=== PATIENT | male | born 1955 | race Caucasian/White ===

== ENCOUNTER → 2019-02-03 | Outpatient (CLI) | payer OTHER ==
[~2019-02-03] MED LIST: EPIN0.3P3 IM; FAMO-119 PO; LISI10TA2 PO; PRAV40TA PO; PRD20T PO
[2019-02-03 10:58] LABS: ABG OXYGEN SATURATION 93 % (94-100); ABG PCO2 47 MMHG (35-45); ABG PH 7.39 (7.37-7.43); ABG PO2 55 MMHG (79-93); ABG TCO2 30.4 MMOL/L (21.0-31.0)
[2019-02-03 10:59] LABS: ALLENS TEST YES-POS; INSPIRED O2 RA; PATIENT TEMP 96.4; VENTILATOR NO
== END ==
LOC: RT 10:27
PROVIDERS: ATTEND Nurse Practitioner Family
DX: J44.9 Chronic obstructive pulmonary disease, unspecified (principal)
CPT/HCPCS: 36600; 82805

== ENCOUNTER → 2019-03-10 | Outpatient (CLI) | payer OTHER ==
--- NOTE | 2019-03-10 13:58 | Diagnostic Imaging Report ---
PROCEDURE: CT chest without contrast. TECHNIQUE: Multiple contiguous axial images were obtained through the chest without the use of intravenous contrast. Auto Exposure Controls were utilized during the CT exam to meet ALARA standards for radiation dose reduction. INDICATION: Smoker. FINDINGS: No comparison available. Calcified nodules are seen in the right upper lobe in keeping with prior granulomatous infection. No other nodules are seen. No suspicious nodules. No edema or pneumonia. No pleural effusion or pneumothorax. No significant emphysema. Heart size is normal. No pericardial effusion. Aorta is normal in caliber. No axillary, supraclavicular or mediastinal lymphadenopathy. Calcified mediastinal lymph nodes are in keeping with prior granulomatous infection. Limited views of the upper abdomen are normal. There are no suspicious osseous lesions. IMPRESSION: 1. No suspicious pulmonary nodules. Dictated by: Dictated on workstation # [id number]
== END ==
LOC: RAD 13:30
PROVIDERS: ATTEND Nurse Practitioner Family
DX: R91.8 Other nonspecific abnormal finding of lung field (principal); Z72.0 Tobacco use
CPT/HCPCS: 71250

== ENCOUNTER 2019-05-12 20:44 | Outpatient (CLI) | payer OTHER | END 2019-05-13 06:30 | disposition home or self-care (01) | LOC: SLEEP 20:44 | PROVIDERS: ATTEND Nurse Practitioner Family | DX: J30.9 Allergic rhinitis, unspecified (principal); G47.33 Obstructive sleep apnea (adult) (pediatric); G47.36 Sleep related hypoventilation in conditions classified elsewhere; Z72.0 Tobacco use | CPT/HCPCS: 95811 ==

== ENCOUNTER 2019-10-07 08:33 | Inpatient (IN) | payer OTHER ==
[~2019-10-07] VITALS: Ht 182.9 cm; Wt 121.0 kg
[2019-10-07] VITALS (10 sets, daily range): BP systolic 139–187; BP diastolic 94–117
[2019-10-07] MEDS ORDERED: methylPREDNISolone 125 MG (Solu-MEDROL) VIAL IV STA (08:38)
--- NOTE | 2019-10-07 08:39 | NUR ---
PLACED ON BI GUMARO
[2019-10-07] MEDS ORDERED: RT-ALBUTEROL/IPRATROPIUM 3 ML (DUONEB) VIAL INH ONE (08:45)
--- NOTE | 2019-10-07 08:45 | NUR ---
BREATHING IMPROVED WTIH BI PAP COLOR IMPROVED
[2019-10-07 08:51] LABS: BASOPHILS % (AUTO) 0 % (0-10); EOSINOPHILS % (AUTO) 0 % (0-10); HEMATOCRIT 50 % (40-54); HEMOGLOBIN 16.2 G/DL (13.3-17.7); LYMPHOCYTES # (AUTO) 0.6 X 10^3 (1.0-4.0); LYMPHOCYTES % (AUTO) 6 % (12-44); MEAN CORPUSCULAR HEMOGLOBIN 30 PG (25-34); MEAN CORPUSCULAR HGB CONC 32 G/DL (32-36); MEAN CORPUSCULAR VOLUME 94 FL (80-99); MEAN PLATELET VOLUME 10.1 FL (7.4-10.4); MONOCYTES # (AUTO) 1.2 X 10^3 (0.0-1.0); MONOCYTES % (AUTO) 11 % (0-12); NEUTROPHILS # (AUTO) 8.9 X 10^3 (1.8-7.8); NEUTROPHILS % (AUTO) 83 % (42-75); PLATELET COUNT 219 10^3/uL (130-400); RED CELL DISTRIBUTION WIDTH 15.9 % (10.0-14.5); WHITE BLOOD COUNT 10.7 10^3/uL (4.3-11.0)
[2019-10-07] MEDS ORDERED: BUDE10.2 (08:53)
--- NOTE | 2019-10-07 08:56 | ED Respiratory ---
General Chief Complaint: Respiratory Problems Stated Complaint: FLU LIKE SYMPTOMS/TROUBLE BREATHING Source: patient, family Exam Limitations: clinical condition History of Present Illness Date Seen by Provider: Oct 07, 2019 Time Seen by Provider: 08:40 Initial Comments 64-year-old male presents with difficulty breathing. Patient symptoms started last night and progressively worse. Patient's reports he has a history of COPD. Patient is having significant difficulty talking and is moderate distress so history of present illness is limited. Patient reports that the symptoms started with fever chills cough body aches. That they significantly worsened last night. Allergies and Home Medications Allergies Coded Allergies: aspirin (Unverified Allergy, Severe, 06/29/14) ANGIOEDEMA Beef Containing Products (Verified Allergy, Unknown, ANAPHYLAXIS, 06/29/14) Hives and difficulty breathing pork derived (porcine) (Verified Allergy, Unknown, 06/29/14) RASH Uncoded Allergies: PCN (Allergy, Unknown, 06/29/14) Patient Home Medication List Home Medication List Reviewed: Yes Review of Systems Review of Systems Constitutional: chills Respiratory: cough, short of breath, wheezing Cardiovascular: No chest pain Gastrointestinal: no symptoms reported Genitourinary: no symptoms reported Skin: no symptoms reported Psychiatric/Neurological: No Symptoms Reported Past Wcjlmwu-Tyatlu-Fuwsek Hx Past Med/Social Hx: Reviewed Nursing Past Med/Soc Hx Immunizations Up To Date Date of Influenza Vaccine: May 23, 2014 Physical Exam Vital Signs - First Documented 10/07/19 10/07/19 08:33 09:02 Temp 36.7 Pulse 122 Resp 42 B/P (MAP) 185/123 (143) Pulse Ox 48 O2 Delivery Room Air O2 Flow Rate 85.00 Capillary Refill : Height: 6'0" Weight: 225lbs. oz. 102.979341sa; BMI Method:Stated General Appearance: severe distress HEENT: PERRL/EOMI, other (lips were blue tinged) Respiratory: decreased breath sounds Cardiovascular: tachycardia Gastrointestinal: non tender, soft Extremities: normal range of motion, non-tender, other (blue tinged) Neurologic/Psychiatric: junior network administrator II-XII nml as tested, alert, normal mood/affect Skin: cyanosis; No rash Focused Exam Lactate Level 10/07/19 08:40: Lactic Acid Level 3.08*H Lactic Acid Level Laboratory Tests Test 10/07/19 08:40 Lactic Acid Level 3.08 MMOL/L (0.50-2.00) *H Progress/Results/Core Measures Suspected Sepsis SIRS Temperature: Pulse: Respiratory Rate: Laboratory Tests 10/07/19 08:40: White Blood Count 10.7 Blood Pressure / Mean: 10/07/19 08:40: Lactic Acid Level 3.08*H Laboratory Tests 10/07/19 08:40: Creatinine 1.15, Platelet Count 219, Total Bilirubin 0.3 Results/Orders Lab Results Laboratory Tests Test 10/07/19 08:40 Range/Units White Blood Count 10.7 4.3-11.0 10^3/uL Red Blood Count 5.35 4.35-5.85 10^6/uL Hemoglobin 16.2 13.3-17.7 G/DL Hematocrit 50 40-54 % Mean Corpuscular Volume 94 80-99 FL Mean Corpuscular Hemoglobin 30 25-34 PG Mean Corpuscular Hemoglobin Concent 32 32-36 G/DL Red Cell Distribution Width 15.9 H 10.0-14.5 % Platelet Count 219 130-400 10^3/uL Mean Platelet Volume 10.1 7.4-10.4 FL Neutrophils (%) (Auto) 83 H 42-75 % Lymphocytes (%) (Auto) 6 L 12-44 % Monocytes (%) (Auto) 11 0-12 % Eosinophils (%) (Auto) 0 0-10 % Basophils (%) (Auto) 0 0-10 % Neutrophils # (Auto) 8.9 H 1.8-7.8 X 10^3 Lymphocytes # (Auto) 0.6 L 1.0-4.0 X 10^3 Monocytes # (Auto) 1.2 H 0.0-1.0 X 10^3 Eosinophils # (Auto) 0.0 0.0-0.3 10^3/uL Basophils # (Auto) 0.0 0.0-0.1 10^3/uL Neutrophils % (Manual) 74 % Lymphocytes % (Manual) 4 % Monocytes % (Manual) 13 % Band Neutrophils 9 % Toxic Granulation 1+ Dohle Bodies SLIGHT Blood Morphology Comment NORMAL Sodium Level 137 135-145 MMOL/L Potassium Level 4.3 3.6-5.0 MMOL/L Chloride Level 98 98-107 MMOL/L Carbon Dioxide Level 29 21-32 MMOL/L Anion Gap 10 5-14 MMOL/L Blood Urea Nitrogen 12 7-18 MG/DL Creatinine 1.15 0.60-1.30 MG/DL Estimat Glomerular Filtration Rate > 60 BUN/Creatinine Ratio 10 Glucose Level 177 H 70-105 MG/DL Lactic Acid Level 3.08 *H 0.50-2.00 MMOL/L Calcium Level 9.3 8.5-10.1 MG/DL Corrected Calcium 9.1 8.5-10.1 MG/DL Magnesium Level 1.9 1.6-2.4 MG/DL Total Bilirubin 0.3 0.1-1.0 MG/DL Aspartate Amino Transf (AST/SGOT) 53 H 5-34 U/L Alanine Aminotransferase (ALT/SGPT) 34 0-55 U/L Alkaline Phosphatase 61 40-136 U/L B-Type Natriuretic Peptide 68.1 <100.0 PG/ML Total Protein 7.7 6.4-8.2 GM/DL Albumin 4.3 3.2-4.5 GM/DL Micro Results Microbiology 10/07/19 Influenza Types A,B Antigen (SUNIL) - Final, Complete My Orders Orders - ROBBI BANG DO Cbc With Automated Diff (10/07/19 08:38) Comprehensive Metabolic Panel (10/07/19 08:38) BNP (10/07/19 08:38) Blood Culture (10/07/19 08:38) Magnesium (10/07/19 08:38) Ekg Tracing (10/07/19 08:38) O2 (10/07/19 08:38) Ed Iv/Invasive Line Start (10/07/19 08:38) Monitor-Rhythm Ecg Trace Only (10/07/19 08:38) Albuterol/Ipra Inhalation Soln (Duoneb I (10/07/19 08:45) Rt Request For Service (10/07/19 08:38) Methylprednisolone Sod Succ (Solu-Medrol (10/07/19 08:38) Lactic Acid Analyzer (10/07/19 08:38) Svn Small Volume Nebulizer (10/07/19 08:38) Arterial Blood Gas (10/07/19 08:38) Bipap (Bilevel) Set Up (10/07/19 08:38) Influenza A And B Antigens (10/07/19 08:41) Manual Differential (10/07/19 08:40) Chest 1 View, Ap/Pa Only (10/07/19 09:01) Oseltamivir 75 Mg Capsule (Tamiflu 75 (10/07/19 10:15) Fibrin Degradation Products (10/07/19 10:32) Medications Given in ED Current Medications Medications Dose Ordered Sig/Nida Route Start Time Stop Time Status Last Admin Dose Admin Albuterol/ Ipratropium 3 ml ONCE ONCE INH 10/07/19 08:45 10/07/19 08:46 DC 10/07/19 09:01 3 ML Oseltamivir Phosphate 75 mg ONCE ONCE PO 10/07/19 10:15 10/07/19 10:16 DC 10/07/19 10:34 75 MG Vital Signs/I&O 10/07/19 10/07/19 10/07/19 08:33 09:02 10:00 Temp 36.7 Pulse 122 113 96 Resp 42 38 22 B/P (MAP) 185/123 (143) 160/106 (124) Pulse Ox 48 97 96 O2 Delivery Room Air NIV Bilevel O2 Flow Rate 85.00 Capillary Refill : Progress Note : Time: 10:49 Progress Note Patient's symptoms significantly improved with BiPAP and a DuoNeb. Patient is positive for influenza A. We will admit patient for further management of his influenza and COPD. I will obtain a d-dimer at the request of Dr. Baugh so that the results can be return as patient is being admitted upstairs. Patient much improved and stable upon admission. ECG Initial ECG Impression Date: Oct 07, 2019 Initial ECG Impression Time: 08:50 Initial ECG Rate: 114 Initial ECG Rhythm: S.Tach Initial ECG Impression: Nonspecific Changes Diagnostic Imaging Diagonstic Imaging: Xray Plain Films/CT/US/NM/MRI: chest Comments Emergency department focuses on treating and ruling out life-threatening diseases. Whenever possible, a diagnosis is given. However, most patients are given an impression based on their history, physical exam, and workup during your brief time in the ER. Information about probable diagnosis and other educational material has been provided. Please take the time to read and understand this information. It is very important that you follow up with a physician as discussed during the visit today. Failure to adhere to your follow-up instructions may lead to severe disability, injury, or so please make sure to keep your appointments or obtain one as requested. Please keep in mind the emergency department is not designed to your primary care or "family doctor" and nonurgent issues are best evaluated by an outpatient physician Departure Impression Primary Impression: Influenza A Additional Impression: COPD (chronic obstructive pulmonary disease) with acute bronchitis Disposition: ADMITTED INPATIENT Condition: Stable Departure-Patient Inst. Referrals: NO,LOCAL PHYSICIAN (PCP/Family) Primary Care Physician ROBBI BANG DO Oct 07, 2019 08:56
[2019-10-07 09:09] LABS: ALANINE AMINOTRANSFERASE 34 U/L (0-55); ALBUMIN 4.3 GM/DL (3.2-4.5); ALKALINE PHOSPHATASE 61 U/L (40-136); BILIRUBIN,TOTAL 0.3 MG/DL (0.1-1.0); BUN/CREATININE RATIO 10; CALCIUM 9.3 MG/DL (8.5-10.1); CARBON DIOXIDE 29 MMOL/L (21-32); CHLORIDE 98 MMOL/L (98-107); CREATININE SERUM 1.15 MG/DL (0.60-1.30); GFR ESTIMATED > 60; GLUCOSE 177 MG/DL (70-105); MAGNESIUM 1.9 MG/DL (1.6-2.4); POTASSIUM 4.3 MMOL/L (3.6-5.0); SODIUM 137 MMOL/L (135-145); TOTAL PROTEIN 7.7 GM/DL (6.4-8.2)
[2019-10-07 09:11] LABS: BAND NEUTROPHILS 9 %; LYMPHOCYTES % (MANUAL) 4 %; MONOCYTES % (MANUAL) 13 %; NEUTROPHILS % (MANUAL) 74 %; RBC MORPH NORMAL; TOXIC GRANULATION/VACUOLAZATIO 1+
--- NOTE | 2019-10-07 09:15 | Diagnostic Imaging Report ---
CLINICAL INDICATION: Patient with shortness of air. EXAM: Portable chest x-ray upright view. COMPARISONS: Chest x-ray dated 04/20/2013. FINDINGS: Stable calcified granuloma in the lateral left lung base. There is mild increased airspace opacities in both lung bases which may represent atelectasis, but superimposed infiltrates cannot be completely excluded. There is no pleural effusion or pneumothorax. Pulmonary vasculature and cardiac silhouette is with normal limits. Bones show no significant abnormality. IMPRESSION: 1: There is increased mild airspace opacities in both lung bases which may represent atelectasis, but superimposed infiltrate cannot be completely excluded. If necessary, chest x-ray PA and lateral views with good inspiratory effort would help better evaluate. 2: Stable calcified granuloma in the periphery of the left lung base. Dictated by: Dictated on workstation # [id number]
--- NOTE | 2019-10-07 09:59 | NUR ---
[address] AT 98
[2019-10-07] MEDS ORDERED: OSELTAMIVIR 75 MG (TAMIFLU) CAPSULE PO ONE (10:15)
--- NOTE | 2019-10-07 10:28 | NUR ---
PATIENT WANTS BI PAP OFF FOR AWHILE CALLED AND TALKED TO RT SUGGEST PLACE ON OXY MASK TO SEE HOW HE DOES. TALKED WITH DR BETI YOUNGER WITH
--- NOTE | 2019-10-07 10:51 | NUR ---
TOLERATING OXY MASK AT 10L
[2019-10-07] MEDS ORDERED: RT-ALBUTEROL/IPRATROPIUM 3 ML (DUONEB) VIAL IH SCH (11:30)
[2019-10-07] MEDS ORDERED: RT-ALBUTEROL SULF 2.5 MG/3 ML PRE-MIX VIAL INH PRN (11:30)
--- NOTE | 2019-10-07 12:28 | History & Physical-Hospitalist ---
DC COWAN,MED STUDENT 10/07/19 1228: History of Present Illness HPI/Chief Complaint Patient is a 64 y/o male who presented to the ED today with shortness of breath. He reports symptoms began 2 days ago with a fever, chills, cough, and myalgias. He felt worse yesterday, and felt increasingly dyspneic last night and into this morning. Nothing seemed to make his symptoms better. His shortness of breath was worse with exertion. His O2 sat was 48% on arrival to the ED, which rapidly improved with duoneb treatment, solumedrol, and bipap. Patient reports he was diagnosed with COPD about 2 months ago and has never used home O2. He has a symbicort inhaler at home but he states he has not used it the past 2 days because he was not sure if it would help his symptoms or make them worse. Date Seen 10/07/19 Time Seen by a Provider: 12:00 Attending Physician Daquan Baugh MD PCP No,Local Physician Referring Physician Date of Admission Oct 07, 2019 at 10:35 Home Medications & Allergies Home Medications Reviewed patient Home Medication Reconciliation performed by pharmacy medication reconciliations respiratory support technician and/or nursing. Patients Allergies have been reviewed. Allergies Allergies Coded Allergies aspirin (Unverified Allergy, Severe, 06/29/14) ANGIOEDEMA Beef Containing Products (Verified Allergy, Unknown, ANAPHYLAXIS, 06/29/14) Hives and difficulty breathing pork derived (porcine) (Verified Allergy, Unknown, 06/29/14) RASH Uncoded Allergies PCN ( Allergy, Unknown, 06/29/14) Past Wptjrxc-Kfyeiy-Isnukw Hx Past Med/Social Hx: Reviewed Nursing Past Med/Soc Hx Patient Social History Marrital Status: Alcohol Use: Denies Use Recreational Drug Use: No Smoking Status: Current Everyday Smoker (1 ppd since age 17) Recent Foreign Travel: No Contact w/other who traveled: No Recent Infectious Disease Expo: No Immunizations Up To Date Date of Influenza Vaccine: Apr 26, 2019 Past Medical History Respiratory: COPD History of Blood Disorders: No Family History Cancer (prostate cancer (dad)) Review of Systems Constitutional: chills, fever EENTM: No hearing loss, No vision loss Respiratory: cough, dyspnea on exertion, short of breath Cardiovascular: No chest pain, No palpitations Gastrointestinal: No abdominal pain, No constipation, No diarrhea Genitourinary: No dysuria, No frequency Musculoskeletal: No joint pain, No joint swelling Skin: No lesions, No rash Psychiatric/Neurological: Denies Headache, Denies Numbness, Denies Paresthesia Physical Exam Physical Exam Vital Signs Vital Signs - First Documented 10/07/19 10/07/19 08:33 11:40 Temp 36.7 Pulse 122 Resp 42 B/P (MAP) 185/123 (143) Pulse Ox 48 O2 Delivery Room Air O2 Flow Rate 10.00 FiO2 40 Capillary Refill : Less Than 3 Seconds Height, Weight, BMI Height: 6'0" Weight: 225lbs. oz. 102.447145zq; 36.61 BMI Method:Stated General Appearance: No Apparent Distress, WD/WN, Other (on bipap currently) HEENT: PERRL/EOMI, Moist Mucous Membranes Neck: Non Tender, Supple Respiratory: Chest Non Tender, Accessory Muscle Use, Decreased Breath Sounds, Wheezing (bilateral expiratory wheezing, more prominent on the left) Cardiovascular: Regular Rate, Rhythm, No Murmur Gastrointestinal: Normal Bowel Sounds, Non Tender, Soft Extremity: No Calf Tenderness, Swelling (swelling of bilateral ankles) Neurologic/Psychiatric: Alert, Oriented x3, Normal Mood/Affect Skin: Normal Color, Warm/Dry Results Results/Procedures Labs Laboratory Tests 10/07/19 08:40 Patient resulted labs reviewed. Imaging CXR PA/AP only IMPRESSION: 1: There is increased mild airspace opacities in both lung bases which may represent atelectasis, but superimposed infiltrate cannot be completely excluded. If necessary, chest x-ray PA and lateral views with good inspiratory effort would help better evaluate. 2: Stable calcified granuloma in the periphery of the left lung base. Assessment/Plan Admission Diagnosis Acute hypoxic respiratory failure COPD exacerbation due to influenza A with severe sepsis Assessment and Plan Acute hypoxic respiratory failure with COPD exacerbation due to influenza A with severe sepsis - Solumedrol given in the ED. Start prednisone 40 mg QD - Check ABG - MAT protocol - O2 and bipap as needed - Procalcitonin - Elevated d-dimer, will check CT chest to r/o PE - Continue Tamiflu - IV fluids NS 160 ml/hr - Droplet precautions - Tylenol as needed Tobaccoism - Nicotine patch - Cessation counseling DVT prophylaxis - Lovenox Clinical Quality Measures DVT/VTE Risk/Contraindication: Risk Factor Score Per Nursin RFS Level Per Nursing on Admit: 4+=Very High DAQUAN BAUGH MD 10/07/19 1409: Assessment/Plan Admission Diagnosis Admission Status: Inpatient Order (span 2 midnights) Reason for Inpatient Admission: acute respiratory failure on BiPAP Assessment and Plan patient is a 64-year-old male with a past medical history of COPD who presented to the emergency department with a chief complaint of shortness of breath. He was found to have an oxygen saturation of 48 percent on room air. He was immediately placed on BiPAP and was given an hour-long breathing treatment. This improved his oxygen saturations to the 90s and his symptoms significantly. He was actually requesting discharge home from the emergency room after this. He was agreeable to admission though. At this time he states he is breathing much better. He was off of BiPAP to eat lunch but sats were in the 80s and so he was quickly placed back on BiPAP. He has no complaints for me. We will continue steroids, BiPAP, MAT protocol. I discussed with respiratory therapy and we will repeat another hour-long treatment. Did discuss CODE STATUS with him and he would like to be a full code. Will consult pulmonology. continue Tamiflu. We'll check a pro-calcitonin. Defer antibiotic at this time. Diagnosis/Problems Diagnosis/Problems (1) Acute respiratory failure Status: Acute Qualifiers: Respiratory failure complication: hypoxia Qualified Codes: J96.01 - Acute respiratory failure with hypoxia (2) Hypertension Status: Acute Qualifiers: Hypertension type: unspecified Qualified Codes: I10 - Essential (primary) hypertension (3) Adult BMI 36.0-36.9 kg/sq m Status: Chronic (4) COPD (chronic obstructive pulmonary disease) with acute bronchitis Status: Acute (5) Influenza A Status: Acute Supervisory-Addendum Brief Verification & Attestation Participated in pt care: history, MDM, physical Personally performed: exam, history, MDM, supervision of care Care discussed with: Medical Student Procedures: n/a Results interpretation: Verified all documentation Verification and Attestation of Medical Student E/M Service A medical student performed and documented this service in my presence. I reviewed and verified all information documented by the medical student and made modifications to such information, when appropriate. I personally performed the physical exam and medical decision making. Daquan Baugh, Oct 07, 2019,14:04 DC COWAN,MED STUDENT Oct 07, 2019 12:28 DAQUAN BAUGH MD Oct 07, 2019 14:09
[2019-10-07 13:36] LABS: ABG BASE EXCESS 5.4 MMOL/L (-2.5-2.5); ABG OXYGEN SATURATION 91 % (94-100); ABG PCO2 61 MMHG (35-45); ABG PO2 66 MMHG (79-93); ABG TCO2 33.1 MMOL/L (21.0-31.0)
[2019-10-07 13:40] LABS: ABG PH 7.33 (7.37-7.43); ALLENS TEST YES-POS; INSPIRED O2 40% BIPAP; PATIENT TEMP 36.4; VENTILATOR NO
[2019-10-07] MEDS ORDERED: RT-ALBUTEROL SULF 2.5 MG/3 ML PRE-MIX VIAL INH ONE (13:40)
[2019-10-07] MEDS: RT-ALBUTEROL/IPRATROPIUM 3 ML (DUONEB) VIAL IH SCH ×2 (13:43→22:15)
[2019-10-07] MEDS ORDERED: BENZONATATE 100 MG (TESSALON) CAPSULE PO PRN (19:45)
[2019-10-07] MEDS ORDERED: MILK OF MAGNESIA 400 MG/5 ML 30 ML UDC PO PRN (19:45)
[2019-10-07] MEDS ORDERED: ONDANSETRON 4 MG/2 ML (SDV) Z0FRAN IV PRN (19:45)
[2019-10-07] MEDS ORDERED: ANTACID SUSP 30 ML UDC (MYLANTA) PO PRN (19:45)
[2019-10-07] MEDS ORDERED: MELATONIN 3 MG TABLET PO PRN (19:45)
[2019-10-07] MEDS ORDERED: NITROGLYCERIN 2% OINT 1 GM UNIT DOSE PACKET TOP PRN (19:45)
[2019-10-07] MEDS: methylPREDNISolone 40 MG/ML (Solu-MEDROL) VIAL IV SCH (21:49)
[2019-10-07] MEDS: inSUlin ASPART (NovoLOG) 1 UNIT/0.01 ML (CHARGE PER UNIT) SC SCH (21:51)
[2019-10-08] VITALS (8 sets, daily range): BP systolic 132–158; BP diastolic 86–116
[2019-10-08] MEDS: RT-ALBUTEROL/IPRATROPIUM 3 ML (DUONEB) VIAL IH SCH ×4 (01:46→21:54)
[2019-10-08] MEDS: methylPREDNISolone 40 MG/ML (Solu-MEDROL) VIAL IV SCH ×4 (02:37→20:22)
[2019-10-08] MEDS: ACETAMINOPHEN 325 MG TABLET PO PRN (02:41)
[2019-10-08 04:26] LABS: BASOPHILS % (AUTO) 0 % (0-10); EOSINOPHILS % (AUTO) 0 % (0-10); HEMATOCRIT 47 % (40-54); HEMOGLOBIN 15.7 G/DL (13.3-17.7); LYMPHOCYTES # (AUTO) 0.5 X 10^3 (1.0-4.0); LYMPHOCYTES % (AUTO) 4 % (12-44); MEAN CORPUSCULAR HEMOGLOBIN 31 PG (25-34); MEAN CORPUSCULAR HGB CONC 34 G/DL (32-36); MEAN CORPUSCULAR VOLUME 93 FL (80-99); MONOCYTES # (AUTO) 0.5 X 10^3 (0.0-1.0); MONOCYTES % (AUTO) 4 % (0-12); NEUTROPHILS # (AUTO) 10.6 X 10^3 (1.8-7.8); NEUTROPHILS % (AUTO) 91 % (42-75); PLATELET COUNT 216 10^3/uL (130-400); RED CELL DISTRIBUTION WIDTH 16.5 % (10.0-14.5); WHITE BLOOD COUNT 11.6 10^3/uL (4.3-11.0)
[2019-10-08 04:54] LABS: ALANINE AMINOTRANSFERASE 37 U/L (0-55); ALBUMIN 3.8 GM/DL (3.2-4.5); ALKALINE PHOSPHATASE 51 U/L (40-136); BILIRUBIN,TOTAL 0.2 MG/DL (0.1-1.0); BUN/CREATININE RATIO 25; CALCIUM 9.1 MG/DL (8.5-10.1); CARBON DIOXIDE 26 MMOL/L (21-32); CHLORIDE 100 MMOL/L (98-107); CREATININE SERUM 0.91 MG/DL (0.60-1.30); GFR ESTIMATED > 60; GLUCOSE 173 MG/DL (70-105); POTASSIUM 4.7 MMOL/L (3.6-5.0); SODIUM 137 MMOL/L (135-145)
[2019-10-08 05:02] LABS: ABG BASE EXCESS 5.2 MMOL/L (-2.5-2.5); ABG OXYGEN SATURATION 91 % (94-100); ABG PCO2 27 MMHG (35-45); ABG PO2 137 MMHG (79-93); ABG TCO2 28.2 MMOL/L (21.0-31.0)
[2019-10-08 05:09] LABS: ABG PH 7.61 (7.37-7.43)
[2019-10-08 05:10] LABS: ALLENS TEST POS; INSPIRED O2 40%; PATIENT TEMP 36.5; VENTILATOR NO
[2019-10-08] MEDS: inSUlin ASPART (NovoLOG) 1 UNIT/0.01 ML (CHARGE PER UNIT) SC SCH ×4 (05:27→20:44)
--- NOTE | 2019-10-08 07:26 | Diagnostic Imaging Report ---
INDICATION: Shortness of breath. Comparison is made with prior examination from 10/07/2019. FINDINGS: There is cardiomegaly. There is some venous congestion. There is no pleural effusion or pneumothorax. The mediastinum is unremarkable. IMPRESSION: Cardiomegaly and mild central pulmonary venous congestion. Dictated by: Dictated on workstation # [id number]
[2019-10-08] MEDS: OSELTAMIVIR 75 MG (TAMIFLU) CAPSULE PO SCH ×2 (08:22→20:22)
[2019-10-09] MEDS: methylPREDNISolone 40 MG/ML (Solu-MEDROL) VIAL IV SCH ×3 (02:21→15:30)
[2019-10-09] MEDS: ACETAMINOPHEN 325 MG TABLET PO PRN (02:28)
[2019-10-09] MEDS: RT-ALBUTEROL/IPRATROPIUM 3 ML (DUONEB) VIAL IH SCH ×4 (02:33→21:32)
[2019-10-09 03:47] LABS: BASOPHILS % (AUTO) 0 % (0-10); EOSINOPHILS % (AUTO) 0 % (0-10); HEMATOCRIT 48 % (40-54); HEMOGLOBIN 15.7 G/DL (13.3-17.7); LYMPHOCYTES # (AUTO) 0.6 X 10^3 (1.0-4.0); LYMPHOCYTES % (AUTO) 4 % (12-44); MEAN CORPUSCULAR HEMOGLOBIN 31 PG (25-34); MEAN CORPUSCULAR HGB CONC 32 G/DL (32-36); MEAN CORPUSCULAR VOLUME 96 FL (80-99); MEAN PLATELET VOLUME 10.3 FL (7.4-10.4); MONOCYTES % (AUTO) 7 % (0-12); NEUTROPHILS % (AUTO) 89 % (42-75); PLATELET COUNT 212 10^3/uL (130-400); RED CELL DISTRIBUTION WIDTH 16.5 % (10.0-14.5); WHITE BLOOD COUNT 14.6 10^3/uL (4.3-11.0)
[2019-10-09 04:17] LABS: ALANINE AMINOTRANSFERASE 35 U/L (0-55); ALBUMIN 3.6 GM/DL (3.2-4.5); ALKALINE PHOSPHATASE 50 U/L (40-136); BILIRUBIN,TOTAL 0.2 MG/DL (0.1-1.0); BUN/CREATININE RATIO 27; CALCIUM 8.9 MG/DL (8.5-10.1); CARBON DIOXIDE 28 MMOL/L (21-32); CHLORIDE 101 MMOL/L (98-107); CREATININE SERUM 1.03 MG/DL (0.60-1.30); GFR ESTIMATED > 60; GLUCOSE 179 MG/DL (70-105); MAGNESIUM 2.1 MG/DL (1.6-2.4); PHOSPHORUS 3.2 MG/DL (2.3-4.7); POTASSIUM 4.8 MMOL/L (3.6-5.0); SODIUM 138 MMOL/L (135-145); TOTAL PROTEIN 6.6 GM/DL (6.4-8.2)
--- NOTE | 2019-10-09 04:24 | Pulmonary Consultation ---
History of Present Illness History of Present Illness Date Seen by Provider: Oct 09, 2019 Time Seen by Provider: 04:19 Date of Admission Allergies and Home Medications Allergies Coded Allergies: aspirin (Unverified Allergy, Severe, 06/29/14) ANGIOEDEMA Beef Containing Products (Verified Allergy, Unknown, ANAPHYLAXIS, 06/29/14) Hives and difficulty breathing pork derived (porcine) (Verified Allergy, Unknown, 06/29/14) RASH Uncoded Allergies: PCN (Allergy, Unknown, 06/29/14) Past Ytzkyak-Zyzeqn-Soeoml Hx Past Med/Social Hx: Reviewed Nursing Past Med/Soc Hx Patient Social History Alcohol Use: Denies Use Recreational Drug Use: No Smoking Status: Current Everyday Smoker (1 ppd since age 17) Recent Foreign Travel: No Contact w/Someone Who Travel: No Recent Infectious Disease Expo: No Immunizations Up To Date Date of Influenza Vaccine: Apr 26, 2019 Past Medical History Surgeries: No Respiratory: No Cardiac: No Neurological: No Gastrointestinal: No Musculoskeletal: No Endocrine: No Cancer: No Psychosocial: No Blood Disorders: No Family Medical History Cancer (prostate cancer (dad)) Sepsis Event Evaluation Height, Weight, BMI Height: 6'0" Weight: 225lbs. oz. 102.406606xb; 36.61 BMI Method:Stated Exam Exam Vital Signs Date Time Temp Pulse Resp B/P (MAP) Pulse Ox O2 Delivery O2 Flow Rate FiO2 10/09/19 02:42 77 22 94 Vapotherm 25.00 45.00 10/09/19 02:33 92 Vapotherm 25.00 45 10/09/19 01:00 73 10/08/19 23:38 37.3 100 20 132/86 (101) 93 Vapotherm 25.00 40.00 10/08/19 23:37 92 Vapotherm 25.00 40 10/08/19 21:54 92 Vapotherm 25.00 40 10/08/19 20:32 36.9 100 21 148/105 (119) 92 Vapotherm 25.00 40.00 10/08/19 20:00 92 Vapotherm 25.00 40 10/08/19 20:00 92 Vapotherm 25.00 40 10/08/19 19:00 100 10/08/19 16:00 36.8 10/08/19 16:00 90 Vapotherm 25.00 40 10/08/19 16:00 105 20 134/105 (115) 92 Vapotherm 25.00 40.00 10/08/19 15:10 Vapotherm 25.00 40.00 10/08/19 15:10 94 Vapotherm 30.00 40 10/08/19 13:00 106 10/08/19 12:00 36.8 10/08/19 12:00 106 23 158/98 (118) 92 Vapotherm 30.00 40.00 10/08/19 12:00 90 Vapotherm 30.00 40 10/08/19 09:50 97 Vapotherm 30.00 40 10/08/19 09:25 93 Vapotherm 30.00 40 10/08/19 08:27 90 Vapotherm 30.00 40 10/08/19 08:00 94 23 143/92 (109) 93 Vapotherm 30.00 40.00 10/08/19 07:00 76 I & O 10/09/19 07:00 Intake Total 1300 ml Output Total 950 ml Balance 350 ml Height & Weight Height: 6'0" Weight: 225lbs. oz. 102.141411aw; 36.61 BMI Method:Stated General Appearance: No Apparent Distress, WD/WN, Other (on bipap currently) HEENT: PERRL/EOMI, Moist Mucous Membranes Neck: Non Tender, Supple Respiratory: Chest Non Tender, Accessory Muscle Use, Decreased Breath Sounds, Wheezing (bilateral expiratory wheezing, more prominent on the left) Cardiovascular: Regular Rate, Rhythm, No Murmur Capillary Refill: Less Than 3 Seconds Gastrointestinal: non tender, soft Extremity: No Calf Tenderness, Swelling (swelling of bilateral ankles) Neurologic/Psychiatric: Alert, Oriented x3, Normal Mood/Affect Skin: Normal Color, Warm/Dry Results Lab Laboratory Tests 10/07/19 08:40 10/08/19 03:47 10/09/19 03:00 Assessment/Plan Assessment/Plan Acute on chronic respiratory failure -Duoneb -Solumedrol -Oxygen -ABG 61 -Pt will benefit from home vent to mask Hypoxia - Worse at night -Pt does not have home 02 -Will need desaturation testing prior to discharge Obesity hypoventilation syndrome --Pt will benefit from home vent to mask influeneza A -Tamiflu HTN Morbid obesity r/o Obesity hypoventilation syndrome KAIN OLSON DO Oct 09, 2019 04:24
[2019-10-09 05:00] VITALS: BP 136/86
[2019-10-09] MEDS: inSUlin ASPART (NovoLOG) 1 UNIT/0.01 ML (CHARGE PER UNIT) SC SCH ×4 (05:12→21:15)
[2019-10-09] MEDS: ENOXAPARIN 40 MG/0.4 ML (LOVENOX) SYR SC SCH (05:40)
[2019-10-09] MEDS ORDERED: MAGNESIUM 1 GM/100 ML IVPB 100 ML IV SCH (06:00)
[2019-10-09] MEDS ORDERED: KCL 20 MEQ TAB (K-DUR) PO SCH (06:00)
[2019-10-09] MEDS ORDERED: POTASSIUM CL 10MEQ/50ML IVPB 50 ML IV SCH (06:00)
[2019-10-09 07:30] VITALS: BP 143/94
[2019-10-09] MEDS: OSELTAMIVIR 75 MG (TAMIFLU) CAPSULE PO SCH ×2 (07:42→21:14)
--- NOTE | 2019-10-09 08:48 | Diagnostic Imaging Report ---
Portable erect AP chest at 346 hours. INDICATION: Respiratory failure. FINDINGS: The heart size is within normal limits and stable when compared to 10/08/2019. The central pulmonary vascularity does not appear as prominent as on the prior exam. At this time, there is no evidence for failure, pneumonia or pleural effusion. The mediastinum is not widened. The osseous structures are intact. IMPRESSION: The pulmonary congestion noted on the prior exam has essentially resolved. There is no acute abnormality evident. Dictated by: Dictated on workstation # [id number]
[2019-10-09] MEDS ORDERED: NS 100 ML (IVPB) BAG IV ONE (10:30)
[2019-10-09] MEDS ORDERED: IOHEXOL 350 MG/ML 100 ML (OMNIPAQUE 350) VIAL IV ONE (10:30)
[2019-10-09] MEDS ORDERED: HOLD METFORMIN - RECEIVED CONTRAST 20 ML VIAL IV SCH (10:30)
--- NOTE | 2019-10-09 11:02 | Diagnostic Imaging Report ---
PROCEDURE: CT angiography of the chest with contrast. TECHNIQUE: Multiple contiguous axial images were obtained through the chest after uneventful bolus administration of intravenous contrast. 3D reconstructed CTA MIP acquisitions were also performed. Auto Exposure Controls were utilized during the CT exam to meet ALARA standards for radiation dose reduction. INDICATION: Shortness of air. COMPARISON: Study compared with noncontrasted chest CT performed on 03/10/2019. FINDINGS: There are no intraluminal pulmonary arterial filling defects. There are no findings of pulmonary arterial embolus. The thoracic aorta is patent and nonaneurysmal. There is no pleural or pericardial effusion. No lymphadenopathy. No focal pulmonary consolidations. There are some mild partial atelectatic changes in the posterior sulcal dependent lower lobes bilaterally as well as likely atelectatic changes accounting for some right middle lobe density anteriorly at the base. No pneumothorax. No mediastinal air. There is benign calcified granulomatous residua, chronic. No acute soft tissue or osseous chest wall disease. IMPRESSION: Negative for PE. Nonaneurysmal atherosclerosis. Mild zones of atelectasis. No acute-appearing abnormality. Dictated by: Dictated on workstation # [id number]
[2019-10-09 11:09] VITALS: BP 146/91
--- NOTE | 2019-10-09 11:10 | NUR ---
PT TO CT SCAN ON OXYMASK AT 8LPM WITH NO DIFFICULITES. PLACED ON HIGH FLOW NASAL CANNULA AT 8 LPM WITH SATS 97%. DECREASED TO 6 LPM WITH SATS 94%. PT ASSISTED TO RECLINER AND CUP OF COFFEE GIVEN. PT HAS NO COMPLAINTS.
--- NOTE | 2019-10-09 12:04 | Physician Query Clarification ---
PQ-Link Manifestation-Etiology Admission/Discharge Admission Date: Oct 07, 2019 at 10:35 Discharge Date: The medical record reflects the following clinical scenario: History/Risk Factors: Severe sepsis Influenza A Acute Respiratory Failure Clinical Findings: T36.7, Pulse 122, Resp 42, BP 185/123, 02 sats on arrival to ED was 48%, pH 73.3, PC02 61, P02 66, Lactic acid 3.08. Treatment:BiPAP, DuoNeb, OxyMask 10L, NIV Bilevel and Vapotherm. Question: Can you specify if the Acute Respiratory Failure is due to/associated with Sepsis? Please document a response in the Progress Note or Discharge Summary. 1. Yes - [Manifestation] is due to/associated with [etiology]. 2. No - [Manifestation] is not due to/associated with [etiology]. 3. Other, with explanation of the clinical findings. 4. Clinically undetermined, no explanation for the clinical findings. PHYSICIAN RESPONSE Manifestation due to/assoic: No (due to influenza) Please remember a lack of response to the above will prompt a phone page by CDI/Coding staff. In responding to this query, please exercise your independent professional judgment. The purpose of this communication is to more accurately reflect the complexity of your patients condition. The fact that a question is asked does not imply that any particular answer is desired or expected. Thank you for your timely response to this clarification. Requestors name: Valarie Mancini [facility] Phone # ext [phone] or [phone] THIS PHYSICIAN QUERY FORM IS A PERMANENT PART OF THE MEDICAL RECORD VALARIE MANCINI Oct 09, 2019 12:04 DAQUAN DAVIS MD Oct 16, 2019 20:13
[2019-10-09] MEDS ORDERED: IBUP-2185 PO (12:48)
--- NOTE | 2019-10-09 12:49 | NUR ---
SPOKE WITH THE PT TO COMPLETE THE MED REC. PT DENIES BEING ON ANY PRESCRIPTION MEDS- HE DID HAVE A SYMBICORT ON HIS EXT MED HISTORY BUT HE SAYS HE DOESNT USE IT. OTC MEDS: IBUPROFEN HE PREFERRED PHARMACY HAS ALSO BEEN UPDATED
[2019-10-09 15:23] VITALS: BP 143/83
[2019-10-09 16:55] VITALS: BP 138/84
--- NOTE | 2019-10-09 17:06 | Progress Note - Hospitalist ---
Subjective HPI/CC On Admission Date Seen by Provider: Oct 09, 2019 Time Seen by Provider: 08:35 Patient is a 64 y/o male who presented to the ED today with shortness of breath. He reports symptoms began 2 days ago with a fever, chills, cough, and myalgias. He felt worse yesterday, and felt increasingly dyspneic last night and into this morning. Nothing seemed to make his symptoms better. His shortness of breath was worse with exertion. His O2 sat was 48% on arrival to the ED, which rapidly improved with duoneb treatment, solumedrol, and bipap. Patient reports he was diagnosed with COPD about 2 months ago and has never used home O2. He has a symbicort inhaler at home but he states he has not used it the past 2 days because he was not sure if it would help his symptoms or make them worse. Subjective/Events-last exam he denies shortness of breath. He does have a cough. He denies any fevers or chills. He has no other complaints or concerns. Focused Exam Lactate Level 10/07/19 08:40: Lactic Acid Level 3.08*H 10/07/19 10:37: Lactic Acid Level 1.31 Objective Exam Vital Signs Vital Signs Date Time Temp Pulse Resp B/P (MAP) Pulse Ox O2 Delivery O2 Flow Rate FiO2 10/09/19 16:14 99 High Flow N/C 3.00 10/09/19 15:23 36.3 83 18 143/83 (103) 10/09/19 08:03 30 Capillary Refill : Less Than 3 Seconds General Appearance: No Apparent Distress, Obese Respiratory: Lungs Clear, Normal Breath Sounds, No Respiratory Distress Cardiovascular: No Edema, No Murmur, Tachycardia Gastrointestinal: Normal Bowel Sounds, Non Tender, Soft Extremity: Normal Inspection, Non Tender, No Pedal Edema Neurologic/Psychiatric: Alert, Oriented x3, No Motor/Sensory Deficits, Normal Mood/Affect Skin: Normal Color, Warm/Dry Results/Procedures Lab Laboratory Tests 10/09/19 03:00 Patient resulted labs reviewed. Imaging: Reviewed Imaging Report Assessment/Plan Assessment and Plan Assess & Plan/Chief Complaint acute respiratory failure with hypoxia Influenza infection COPD with acute exacerbation Continue supplemental oxygen, wean as able Continue Tamiflu Continue steroids MAT protocol leukocytosis Hypoglycemia Likely due to steroids Continue to monitor sliding scale insulin DVT prophylaxis: Lovenox Diagnosis/Problems Diagnosis/Problems (1) Influenza A Status: Acute (2) Acute respiratory failure Status: Acute Qualifiers: Respiratory failure complication: hypoxia Qualified Codes: J96.01 - Acute respiratory failure with hypoxia (3) COPD (chronic obstructive pulmonary disease) with acute bronchitis Status: Acute Clinical Quality Measures DVT/VTE Risk/Contraindication: Risk Factor Score Per Nursin RFS Level Per Nursing on Admit: 4+=Very High ORVILLE SOLER MD Oct 09, 2019 17:06
--- NOTE | 2019-10-09 17:30 | NUR ---
REPORT CALLED TO DOLORES MOSES. PT TRANSFERRED VIA W/C WITH ALL PERSONAL BELONGINGS. TRANSFERRED WITH NO COMPLAINTS.
--- NOTE | 2019-10-09 17:30 | NUR ---
TRANSFERRED FROM ICU TO ROOM 408 PER W/C. ALERT AND COOPERATIVE. SKIN W/D. RESP. REGULAR AND SHALLOW. SCATTERED COURSE AND WHEEZES HEARD WHEN LUNGS ASCULATED ELISABETH. HEART RATE REGULAR. SL. EDEMA IN ANKLES. SALINE LOCK TO LEFT AC CLEAR. O2 ON AT 1.5 L PER LONG NASAL CANNULA. SL. COUGH AT TIMES. REMAINS IN DROPLET ISOLATION,
[2019-10-09 20:00] VITALS: BP 146/81
[2019-10-10 00:32] VITALS: BP 111/66
[2019-10-10] MEDS: RT-ALBUTEROL/IPRATROPIUM 3 ML (DUONEB) VIAL IH SCH ×3 (01:59→16:39)
[2019-10-10 04:00] VITALS: BP 146/76
[2019-10-10] MEDS: ENOXAPARIN 40 MG/0.4 ML (LOVENOX) SYR SC SCH (05:18)
[2019-10-10] MEDS: inSUlin ASPART (NovoLOG) 1 UNIT/0.01 ML (CHARGE PER UNIT) SC SCH ×2 (06:58→12:16)
[2019-10-10 07:00] LABS: BASOPHILS % (AUTO) 0 % (0-10); EOSINOPHILS % (AUTO) 0 % (0-10); HEMATOCRIT 49 % (40-54); HEMOGLOBIN 15.6 G/DL (13.3-17.7); LYMPHOCYTES # (AUTO) 1.3 X 10^3 (1.0-4.0); LYMPHOCYTES % (AUTO) 11 % (12-44); MEAN CORPUSCULAR HEMOGLOBIN 30 PG (25-34); MEAN CORPUSCULAR HGB CONC 32 G/DL (32-36); MEAN CORPUSCULAR VOLUME 94 FL (80-99); MEAN PLATELET VOLUME 10.1 FL (7.4-10.4); MONOCYTES # (AUTO) 1.3 X 10^3 (0.0-1.0); MONOCYTES % (AUTO) 12 % (0-12); NEUTROPHILS # (AUTO) 8.8 X 10^3 (1.8-7.8); NEUTROPHILS % (AUTO) 77 % (42-75); PLATELET COUNT 234 10^3/uL (130-400); RED CELL DISTRIBUTION WIDTH 16.6 % (10.0-14.5); WHITE BLOOD COUNT 11.4 10^3/uL (4.3-11.0)
[2019-10-10] MEDS ORDERED: predniSONE 20 MG TAB PO SCH (07:00)
[2019-10-10 07:29] LABS: ALANINE AMINOTRANSFERASE 46 U/L (0-55); ALBUMIN 3.6 GM/DL (3.2-4.5); ALKALINE PHOSPHATASE 50 U/L (40-136); BILIRUBIN,TOTAL 0.3 MG/DL (0.1-1.0); BUN/CREATININE RATIO 28; CALCIUM 8.9 MG/DL (8.5-10.1); CARBON DIOXIDE 33 MMOL/L (21-32); CHLORIDE 99 MMOL/L (98-107); CREATININE SERUM 0.85 MG/DL (0.60-1.30); GFR ESTIMATED > 60; GLUCOSE 109 MG/DL (70-105); MAGNESIUM 2.1 MG/DL (1.6-2.4); PHOSPHORUS 3.7 MG/DL (2.3-4.7); POTASSIUM 4.7 MMOL/L (3.6-5.0); SODIUM 141 MMOL/L (135-145); TOTAL PROTEIN 6.5 GM/DL (6.4-8.2)
[2019-10-10] MEDS: OSELTAMIVIR 75 MG (TAMIFLU) CAPSULE PO SCH (07:59)
[2019-10-10 08:45] VITALS: BP 124/78
--- NOTE | 2019-10-10 10:38 | NUR ---
Patient was on 2 L NC with an O2 sat of 90% and HR of 74; Patient was placed on RA for 27 mins and O2 sat of 84% on RA; O2 was placed on patient and it took 2 L NC to achieve O2 sat of 93%; then patient walked for 6 mins on 2 L NC and did not drop below 89% during his 6 mins walking; HR during walk ranged from 92 to 107; Patient walked a total of 516 ft.
[2019-10-10 11:30] VITALS: BP 146/88
--- NOTE | 2019-10-10 11:46 | NUR ---
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
[2019-10-10] MEDS ORDERED: OSLT75C PO (12:06)
[2019-10-10] MEDS ORDERED: PRD20T PO (12:06)
--- NOTE | 2019-10-10 14:58 | Discharge Summary ---
Discharge Summary Hospital Course Was the Problem List Reviewed?: Yes Problems/Dx: (1) Influenza A Status: Acute (2) Acute respiratory failure Status: Acute Qualifiers: Qualified Codes: J96.01 - Acute respiratory failure with hypoxia (3) COPD (chronic obstructive pulmonary disease) with acute bronchitis Status: Acute Hospital Course Date of Admission: Oct 07, 2019 at 10:35 Admission Diagnosis : Acute hypoxic respiratory failure due to influenza infection Family Physician/Provider: No,Local Physician Date of Discharge: 10/10/19 Discharge Diagnosis: Acute hypoxic respiratory failure due to influenza infection Hospital Course: Rishi Alfaro is a 64-year-old male who presented with shortness of breath and was admitted with acute hypoxic respiratory failure due to influenza infection. He was started on Tamiflu. He required significant amounts of supplemental oxygen initially and this improved throughout his stay. On discharge he required 2 L of oxygen continuously. He was set up with home oxygen prior to discharge. He will complete a course of Tamiflu. He will also complete a short course of steroids for exacerbation of COPD. He should follow-up with his primary care physician. Labs and Pending Lab Test: Laboratory Tests 10/09/19 16:32: Glucometer 166H 10/09/19 21:06: Glucometer 243H 10/10/19 06:30: White Blood Count 11.4H, Red Blood Count 5.17, Hemoglobin 15.6, Hematocrit 49, Mean Corpuscular Volume 94, Mean Corpuscular Hemoglobin 30, Mean Corpuscular Hem oglobin Concent 32, Red Cell Distribution Width 16.6H, Platelet Count 234, Mean Platelet Volume 10.1, Neutrophils (%) (Auto) 77H, Lymphocytes (%) (Auto) 11L, Monocytes (%) (Auto) 12, Eosinophils (%) (Auto) 0, Basophils (%) (Auto) 0, Neutrophils # (Auto) 8.8H, Lymphocytes # (Auto) 1.3, Monocytes # (Auto) 1.3H, Eosinophils # (Auto) 0.0, Basophils # (Auto) 0.0, Sodium Level 141, Potassium Level 4.7, Chloride Level 99, Carbon Dioxide Level 33H, Anion Gap 9, Blood Urea Nitrogen 24H, Creatinine 0.85, Estimat Glomerular Filtration Rate > 60, BUN/Creatinine Ratio 28, Glucose Level 109H, Calcium Level 8.9, Corrected Calcium 9.2, Phosphorus Level 3.7, Magnesium Level 2.1, Total Bilirubin 0.3, Aspartate Amino Transf (AST/SGOT) 74H, Alanine Aminotransferase (ALT/SGPT) 46, Alkaline Phosphatase 50, Total Protein 6.5, Albumin 3.6 10/10/19 06:56: Glucometer 110 10/10/19 11:40: Glucometer 154H Microbiology 10/07/19 Blood Culture - Preliminary, Resulted No growth 10/07/19 Influenza Types A,B Antigen (SUNIL) - Final, Complete Home Meds Active Prednisone 20 Mg Tab 40 Mg PO DAILY@0700 3 Days Tamiflu (Oseltamivir Phosphate) 75 Mg Cap 75 Mg PO BID 3 Days Reported Ibuprofen 200 Mg Capsule 400 Mg PO Q6H PRN Assessment/Pt Instructions Take medications as prescribed. Follow up with her primary care physician. Discharge Planning: <30 minutes discharge planning Discharge Instructions Discharge Diet: No Restrictions Activity as Tolerated: Yes Discharge Physical Examination Vital Signs Vital Signs Date Time Temp Pulse Resp B/P (MAP) Pulse Ox O2 Delivery O2 Flow Rate FiO2 10/10/19 11:47 Nasal Cannula 2.00 10/10/19 11:30 36.8 86 20 146/88 (107) 92 10/09/19 08:03 30 General Appearance: No Apparent Distress, WD/WN HEENT: PERRL/EOMI, Pharynx Normal Respiratory: Lungs Clear, Normal Breath Sounds, No Respiratory Distress Cardiovascular: Regular Rate, Rhythm, No Edema, No Murmur Gastrointestinal: Normal Bowel Sounds, Non Tender, Soft Extremity: Normal Inspection, Non Tender, No Pedal Edema Skin: Normal Color, Warm/Dry Neurologic/Psychiatric: Alert, Oriented x3, No Motor/Sensory Deficits, Normal Mood/Affect Allergies: Coded Allergies: aspirin (Unverified Allergy, Severe, 06/29/14) ANGIOEDEMA Beef Containing Products (Verified Allergy, Unknown, ANAPHYLAXIS, 06/29/14) Hives and difficulty breathing pork derived (porcine) (Verified Allergy, Unknown, 06/29/14) RASH Uncoded Allergies: PCN (Allergy, Unknown, 06/29/14) Discharge Summary Date of Admission Oct 07, 2019 at 10:35 Date of Discharge Discharge Date: Oct 10, 2019 Discharge Time: 14:57 Admission Diagnosis Acute hypoxic respiratory failure due to influenza infection Discharge Diagnosis Acute hypoxic respiratory failure due to influenza infection (1) Influenza A Status: Acute (2) Acute respiratory failure Status: Acute Qualifiers: Qualified Codes: J96.01 - Acute respiratory failure with hypoxia (3) COPD (chronic obstructive pulmonary disease) with acute bronchitis Status: Acute Clinical Quality Measures DVT/VTE Risk/Contraindication: Risk Factor Score Per Nursin RFS Level Per Nursing on Admit: 4+=Very High ORVILLE OSLER MD Oct 10, 2019 14:58
--- NOTE | 2019-10-10 15:08 | Pulmonary Progress Note ---
Subjective Time Seen by a Provider: 15:07 Sepsis Event Evaluation Height, Weight, BMI Height: 6'0" Weight: 225lbs. oz. 102.500887sv; 36.61 BMI Method:Stated Exam Exam Vital Signs Date Time Temp Pulse Resp B/P (MAP) Pulse Ox O2 Delivery O2 Flow Rate FiO2 10/10/19 11:47 Nasal Cannula 2.00 10/10/19 11:30 36.8 86 20 146/88 (107) 92 Nasal Cannula 2.00 10/10/19 09:44 90 2.00 10/10/19 09:00 Nasal Cannula 2.00 10/10/19 08:45 36.8 87 20 124/78 (93) 92 Nasal Cannula 2.00 10/10/19 04:00 37.1 65 20 146/76 (99) 93 Nasal Cannula 2.00 10/10/19 04:00 92 High Flow N/C 3.00 10/10/19 00:32 37.4 78 20 111/66 (81) 93 Nasal Cannula 2.00 10/10/19 00:00 92 High Flow N/C 3.00 10/09/19 21:33 94 Nasal Cannula 3.00 10/09/19 21:00 92 High Flow N/C 3.00 10/09/19 20:00 37.5 80 18 146/81 (102) 92 Nasal Cannula 3.00 10/09/19 20:00 92 High Flow N/C 3.00 10/09/19 16:55 37.0 88 20 138/84 (102) 90 High Flow N/C 1.00 10/09/19 16:14 99 High Flow N/C 3.00 10/09/19 15:23 36.3 83 18 143/83 (103) 93 I & O 10/10/19 07:00 Intake Total 1500 ml Output Total 750 ml Balance 750 ml Height & Weight Height: 6'0" Weight: 225lbs. oz. 102.576886aw; 36.61 BMI Method:Stated General Appearance: No Apparent Distress, WD/WN HEENT: PERRL/EOMI, Pharynx Normal Neck: Non Tender, Supple Respiratory: Lungs Clear, Normal Breath Sounds, No Respiratory Distress Cardiovascular: Regular Rate, Rhythm, No Edema, No Murmur Capillary Refill: Less Than 3 Seconds Gastrointestinal: non tender, soft Extremity: Normal Inspection, Non Tender, No Pedal Edema Neurologic/Psychiatric: Alert, Oriented x3, No Motor/Sensory Deficits, Normal Mood/Affect Skin: Normal Color, Warm/Dry Results Lab Laboratory Tests 10/09/19 03:00 10/10/19 06:30 Assessment/Plan Assessment/Plan Acute on chronic respiratory failure -Duoneb -Solumedrol -Oxygen -ABG 61 -Pt will benefit from home vent to mask Hypoxia - Worse at night -Pt does not have home 02 -Will need desaturation testing prior to discharge Obesity hypoventilation syndrome --Pt will benefit from home vent to mask influeneza A -Tamiflu HTN Morbid obesity r/o Obesity hypoventilation syndrome KAIN OLSON DO Oct 10, 2019 15:08
[2019-10-10 16:00] VITALS: BP 156/85
--- NOTE | 2019-10-10 16:24 | NUR ---
CM/SS finalized discharge. Plan: The patient will return home with home O2 from the [facility]. 2L continuous. JACKIE/SS called [place] through the [facility] ([phone]) who stated they will be able to deliver Oxygen to the hospital later today. JACKIE/SS informed the physician, nurse, and the patient was notified by [place]. JACKIE/JODI visited with the patient and his spouse about his new oxygen need. He states that he will not wear his oxygen out to eat or to go shopping with his oxygen. He will wear it when he is at home. This CM/SS informed the patient of his risk including and he verbalized understanding and stated " I know". While this SS was in the room Dr was rounding and talked to the patient about Oxygen and the importance of wearing it. The patient verbalized understanding. However, after the dr left the patient stated he did not want to wait at the hospital for his oxygen to arrive. The patients nurse talked to him about discharge and he decided to wait until the oxygen arrived. No other needs.
--- NOTE | 2019-10-10 17:45 | NUR ---
O2 DELIVERED. RX AND INST AND VERBALIZED UNDERSTANDING. DC'D WITH .
--- NOTE | 2019-10-18 08:34 | Physician Query Clarification ---
PQ-Uncertain Diagnosis Admission/Discharge Admission Date: Oct 07, 2019 at 10:35 Discharge Date: Oct 10, 2019 at 15:45 The medical record reflects the following clinical scenario: History/Risk Factors: Acute on chronic respiratory failure w/hypoxia, Influenza A, COPD AE, OHS Clinical Findings: T36.7, Pulse 122, Resp 42, BP 185/123, 02 sats on arrival to ED was 48%, pH 73.3, PC02 61, P02 66, Lactic acid 3.08. Treatment: IV Solu-medrol, Albuterol, Tamiflu, Tesslon Pearls Question: Is Sepsis a clinically valid diagnosis? Sepsis was documented in the H&P with no further documentation in the medical record. Please document a response in Progress Note or Discharge Summary. 1. Yes, clinically valid, condition resolved. 2. No, condition ruled out. 3. Other, with explanation of clinical findings. 4. Undetermined, no explanation for clinical findings. PHYSICIAN RESPONSE Diagnosis clinically valid: Other, explanation/clinical finding Explanation of clincal finding Viral sepsis Please remember a lack of response to the above will prompt a phone page by CDI/Coding staff. In responding to this query, please exercise your independent professional judgment. The purpose of this communication is to more accurately reflect the complexity of your patients condition. The fact that a question is asked does not imply that any particular answer is desired or expected. Thank you for your timely response to this clarification. Requestors name: Yazmin THIS PHYSICIAN QUERY FORM IS A PERMANENT PART OF THE MEDICAL RECORD YAZMIN BAXTER Oct 18, 2019 08:34 ORVILLE SOLER MD Oct 23, 2019 20:34
== END 2019-10-10 15:45 | disposition home or self-care (01) | DRG 871 ==
LOC: EDUNIT# 08:33 → ER 08:35 → ICU 10:35 → 4TH 10-09 16:53
PROVIDERS: ADMIT Family Medicine; ATTEND Family Medicine
DX: A41.89 Other specified sepsis (principal); B97.89 Other viral agents as the cause of diseases classified elsewhere; J96.21 Acute and chronic respiratory failure with hypoxia; J10.1 Influenza due to other identified influenza virus with other respiratory manifestations; J44.0 Chronic obstructive pulmonary disease with (acute) lower respiratory infection; J20.8 Acute bronchitis due to other specified organisms; J44.1 Chronic obstructive pulmonary disease with (acute) exacerbation; E66.2 Morbid (severe) obesity with alveolar hypoventilation; F17.210 Nicotine dependence, cigarettes, uncomplicated; Z68.36 Body mass index [BMI] 36.0-36.9, adult; E16.0 Drug-induced hypoglycemia without coma; T38.0X5A Adverse effect of glucocorticoids and synthetic analogues, initial encounter
CPT/HCPCS: 36415; 71045; 71275; 80053; 82805; 82962; 83605; 83735; 83880; 84100; 84145; 85007; 85025; 85027; 85379; 87040; 87804; 93005; 93041; 94640; 94660; 94761; 96374

== ENCOUNTER 2023-04-15 15:22 | Emergency (ER) | payer OTHER ==
[~2023-04-15] VITALS: Ht 182 cm; Wt 113.3 kg
[~2023-04-15 15:22] MED LIST changes: +BUDE10.2; +IBUP-2185 PO; +OSLT75C PO
[2023-04-15 15:29] VITALS: BP 128/86
--- NOTE | 2023-04-15 15:44 | ED EENT ---
History of Present Illness General Chief Complaint: Ear Problems Stated Complaint: LEFT EARACHE Source: patient Exam Limitations: no limitations History of Present Illness Date Seen by Provider: Apr 15, 2023 Time Seen by Provider: 15:42 Initial Comments Patient is a 67-year-old male who presents ED with left earache. Earache for the past 3 to 4 days. Ports muffling on his left ear difficulty hearing. Describes it as someone injecting caulking in his left ear. History of earwax removal in the past. Has been using debox [id number] without much improvement. Reports pain that radiates to the left ear. Denies headache, dizziness, nausea vomiting, diarrhea, sore throat, visual changes. Allergies and Home Medications Allergies Coded Allergies: aspirin (Unverified Allergy, Severe, 06/29/14) ANGIOEDEMA Beef Containing Products (Verified Allergy, Unknown, ANAPHYLAXIS, 06/29/14) Hives and difficulty breathing pork derived (porcine) (Verified Allergy, Unknown, 06/29/14) RASH Uncoded Allergies: PCN (Allergy, Unknown, 06/29/14) Patient Home Medication List Home Medication List Reviewed: Yes Cefdinir (Cefdinir) 300 Mg Capsule, 300 MG PO BID Prescribed by: GORDO ESTRADA on 04/15/23 1622 Ibuprofen (Ibuprofen) 200 Mg Capsule, 400 MG PO Q6H PRN for PAIN-MILD (1-4), (Reported) Entered as Reported by: KAIDEN ALFRED on 10/09/19 1248 Oseltamivir Phosphate (Tamiflu) 75 Mg Cap, 75 MG PO BID Prescribed by: ORVILLE SOLER on 10/10/19 1206 Prednisone (Prednisone) 20 Mg Tab, 40 MG PO DAILY@0700 Prescribed by: ORVILLE SOLER on 10/10/19 1206 Review of Systems Review of Systems Constitutional: No chills, No diaphoresis Eyes: Denies Blindness, Denies Blurred Vision, Denies Drainage Ears: Denies Dizziness; Pain Nose: denies clots, denies congestion, denies epistaxis, denies pain Mouth: denies clots, denies loose teeth Throat: denies pain, denies swelling Respiratory: No cough, No dyspnea on exertion Cardiovascular: No chest pain, No edema Gastrointestinal: No abdominal pain, No diarrhea, No nausea, No vomiting Musculoskeletal: No back pain, No joint pain Skin: No change in color, No change in hair/nails Past Whmntqs-[id number]-Ypwskx Hx Past Medical History Surgeries: No Respiratory: No Cardiac: No Neurological: No Gastrointestinal: No Musculoskeletal: No Endocrine: No Cancer: No Psychosocial: No Blood Disorders: No Family Medical History Cancer Physical Exam Vital Signs Vital Signs - First Documented 04/15/23 15:29 Temp 37.0 Pulse 110 Resp 16 B/P (MAP) 128/86 (100) Pulse Ox 93 O2 Delivery Room Air Height, Weight, BMI Height: 6'0" Weight: 225lbs. oz. 102.792466ii; 36.61 BMI Method:Stated General Appearance: WD/WN, no apparent distress Eyes: bilateral eye normal inspection, bilateral eye PERRL, bilateral eye EOMI, bilateral eye abnormal EOM Ears: left ear other (Impacted left ear with cerumen) Nose: normal inspection Mouth/Throat: normal mouth inspection, pharynx normal Neck: non-tender, full range of motion, supple Cardiovascular: regular rate, rhythm, no edema, no gallop, no JVD Respiratory: chest non-tender, lungs clear, normal breath sounds, no respi ratory distress, no accessory muscle use Gastrointestinal: normal bowel sounds, non tender, soft, no organomegaly 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 Patient presents ED with left earache for the past 3 to 4 days. History of cerumen impactation. Pain to the left jaw. Denies headache, dizziness, nasal congestion, sinus pressure. On exam patient had a narrow ear canal. Severe cerumen noted. Placed small amount of hydro peroxide to let sit for about 10 to 15 minutes. Irrigated with warm normal saline. Successful removal of moderate amount of cerumen. Improvement of hearing and pain. This was performed by nurse. Evaluated the left TM with some erythema, purulent and swelling concern for underlying otitis media. Will discharge with cefdinir. Allergic to penicillins. Discussed conservative ways to manage at home. Provided ENT outpatient follow-up. If any worsening symptoms such as severe pain, vertigo to return back to ED. Patient agrees with plan of action. Impression Primary Impression: Impacted cerumen Disposition: HOME, SELF-CARE Condition: Stable Departure-Patient Inst. Decision time for Depature: 15:44 Referrals: CELENA BLISS MD NO,LOCAL PHYSICIAN (PCP) Primary Care Physician Patient Instructions: Ear wax impaction Scripts Cefdinir (Cefdinir) 300 Mg Capsule 300 MG PO BID for 7 Days, #14 CAP Prov: SONA NGUYEN 04/15/23 SONA NGUYEN Apr 15, 2023 15:44
[2023-04-15] MEDS ORDERED: CEFD300C3 PO (16:22)
== END 2023-04-15 16:25 | disposition home or self-care (01) ==
LOC: EDUNIT# 15:22 → ER 15:24
DX: H61.22 Impacted cerumen, left ear (principal); Z88.0 Allergy status to penicillin
CPT/HCPCS: 99282